=== PATIENT | male | born 1965 | race Caucasian/White ===

== ENCOUNTER 2024-06-19 07:22 | Day surgery (SDC) | payer BC, SELFPAY ==
[2024-06-19] VITALS (11 sets, daily range): BP systolic 114–135; BP diastolic 62–72; PULSE 51–58; RESP 16–20; TEMP 36.7–36.8; O2SAT 95–99; BMI 63.9
[2024-06-19] MEDS: CEFAZOLIN 2 GM INJ IVP (07:13)
[2024-06-19] MEDS: SODIUM CHLORIDE 0.9 % (FLUSH) 10 ML SYRINGE IVF ×2 (08:03→09:26)
[2024-06-19] MEDS: BUPIVACAINE 0.25% 30 ML INJECTION (09:20)
--- NOTE | 2024-06-19 11:08 | W.PODPROC_ITS ---
Date of Procedure: 06/19/24 Surgeon: Adal Montague DPM Pre-op Diagnosis: Nonhealing ulcer left great toe Post-op Diagnosis: nonhealing ulcer left great toe Type of Procedure: partial excision phalanx left great toe Indications: patient has nonhealing ulceration that has not responded to conservative care. He is in need of surgical intervention to resect the prominent bone. I reviewed the procedure, recovery, expectation potential complications. These include but not limited to: Poor wound healing, infection, potentially future surgery, deep venous thrombosis, pulmonary embolism and possible . He understands risks and written consent was obtained. Site marked. Procedure Description: Patient brought the operating room placed supine position on operating table. Standard time-out protocol was followed. 20 mL of 0.25% Marcaine plain was injected into the left foot. Patient was prepped and draped in sterile fashion. The left foot was exsanguinated the tourniquet inflated. A fishmouth incision was made creating a dorsal plantar flap. Slightly longer dorsal flap was made. The plantar flap was proximal to the ulceration. Incision was carried down to bone. Proximal phalanx was exposed and approximately 1 cm of the distal portion of the proximal phalanx was resected with a sagittal saw. The resection was angled to reduce plantar pressure. Wound was thoroughly irrigated normal sterile saline. All bleeding vessels were cauterized. Dorsal plantar flaps were brought together and repaired with 3-0 nylon. Sterile dressing was applied. He was transferred from OR to PACU vital signs stable vascular status intact. He will be discharged per same-day surgery protocol. He is weight- bearing as tolerated. Follow up in clinic in 3 days. No pain medication necessary due to neuropathy. Complications: None apparent Anesthesia: local Hemostasis: ankle Estimated blood loss (mL): 5 Specimens: none sent Disposition: same day
== END 2024-06-19 10:26 | disposition home or self-care (01) ==
LOC: OR 07:26
PROVIDERS: Visit Provider Podiatrist
PROC: (CPT 28124; principal; 2024-06-19 08:45)
DX: L97.522 Non-pressure chronic ulcer of other part of left foot with fat layer exposed (principal)
CPT/HCPCS: 28124; J0665; J0690